=== PATIENT | female | born 1945 | race Caucasian/White ===

== ENCOUNTER 2017-12-27 09:39 | Inpatient (IN) | payer MEDICARE, OTHER ==
[~2017-12-27] VITALS: Ht 160 cm; Wt 106.7 kg
[~2017-12-27 09:39] MED LIST: ASPI81CH43 PO; CALC500C3 PO; DOCU-94 PO; ERGO2000 PO; HYDR5TAB60 PO; LEV50T PO; NITR-48 PO
[2017-12-27] MEDS ORDERED: KETOROLAC TROMETH 30 MG/ML 1ML VIAL IV ONE (10:15)
[2017-12-27 10:17] LABS: Hematocrit 36.2 % (36.0-46.0); Hemoglobin 11.7 g/dL (12.2-16.2); Mean Corpuscular Hemoglobin 29.3 pg (28.0-32.0); Mean Corpuscular Hgb Conc. 32.4 g/dL (32.0-36.0); Mean Corpuscular Volume 90.6 fL (80.0-100.0); Platelet Count (auto) 300 10^3/uL (140-450); Red Cell Distribution Width 15.7 % (11.8-14.3); White Blood Cell 15.7 10^3/uL (4.4-10.8)
[2017-12-27 10:24] LABS: Band Neutrophils % (manual) 0; Basophils % (manual) 0 (0.0-2.0); Blast Cells 0; Eosinophils % (manual) 0 (0-7); Metamyelocytes % 0; Myelocytes % 0; Promyelocytes % 0; Reactive Lymphocytes 0
[2017-12-27 10:36] LABS: Anion Gap 11 (5-15); BUN/Creatinine Ratio 30.8; Blood Urea Nitrogen 61 mg/dL (7-18); Carbon Dioxide 22 mmol/L (21-32); Chloride 103 mmol/L (98-107); Glucose 197 mg/dL (74-106); Sodium 136 mmol/L (136-145)
[2017-12-27 10:37] LABS: Alanine Aminotransferase 24 U/L (13-56); Albumin 3.2 g/dL (3.4-5.0); Alkaline Phosphatase 118 U/L (45-117); Aspartate Aminotransferase 16 U/L (15-37); Bilirubin, Total 0.2 mg/dL (0.2-1.0); Calcium 8.9 mg/dL (8.5-10.1); GFR African American 32 mL/min; GFR Non-African American 26 mL/min; Magnesium 2.9 mg/dL (1.6-2.6); Total Protein 7.1 g/dL (6.4-8.2)
[2017-12-27 11:10] LABS: Lymphocytes % (manual) 29 (10.0-50.0); Monocytes % (manual) 5 (0-12)
[2017-12-27] MEDS ORDERED: MORPHINE SULFATE 4 MG/ML SYR/VIAL IV ONE (12:15)
[2017-12-27] MEDS ORDERED: ONDANSETRON HCL 4 MG/2 ML VIAL IV ONE (12:15)
[2017-12-27] MEDS ORDERED: DEXTROSE (50%) 50ML SYRG IV PRN ×2 (13:45→18:00)
[2017-12-27] MEDS ORDERED: ERGOCALCIFEROL 50,000 UNIT(1.25MG) CAP PO SCH (13:45)
[2017-12-27] MEDS ORDERED: cloNIDine HCL 0.1 MG TAB PO PRN (13:45)
[2017-12-27] MEDS ORDERED: DOCUSATE SOD 100 MG CAP PO PRN (14:00)
[2017-12-27] MEDS ORDERED: MORPHINE SULFATE 4 MG/ML SYR/VIAL IV PRN (14:00)
[2017-12-27] MEDS ORDERED: METOPROLOL SUCCINATE XL 50 MG TAB PO ONE (14:00)
[2017-12-27] MEDS ORDERED: predniSONE 20 MG TAB PO ONE (14:00)
[2017-12-27] MEDS ORDERED: traMADol HCL 50 MG TAB PO PRN (14:00)
[2017-12-27] MEDS ORDERED: TEMAZEPAM 15 MG CAP PO PRN (14:00)
[2017-12-27] MEDS ORDERED: NITROGLYCERIN 0.4 MG SL TAB SL PRN (14:00)
[2017-12-27] MEDS ORDERED: HYDROCORTISONE 10 MG TAB PO ONE (14:00)
[2017-12-27] MEDS ORDERED: ONDANSETRON HCL 4 MG/2 ML VIAL IV PRN (14:00)
[2017-12-27] MEDS ORDERED: LEVOTHYROXINE SODIUM 25 MCG TAB PO ONE (14:00)
[2017-12-27] MEDS: FAMOTIDINE 20 MG TAB PO SCH (14:05)
[2017-12-27] MEDS: SODIUM CHLOR 0.9% PF (SALINE LOCK) 10ML VIAL IV SCH ×2 (14:21→22:21)
[2017-12-27 16:27] LABS: Cholesterol 169 mg/dL (< 200); HDL Cholesterol 47 mg/dL (40-59); LDL Cholesterol 101 mg/dL (< 100); Triglycerides 191 mg/dL (< 150)
[2017-12-27 16:33] VITALS: BP 165/119
[2017-12-27] MEDS: MORPHINE SULFATE 4 MG/ML SYR/VIAL IV PRN (16:44)
[2017-12-27] MEDS ORDERED: ACCU-CHEK COMFORT CURVE STRIP VI SCH (17:00)
[2017-12-27] MEDS ORDERED: InsuLIN REG 1unit/0.01ml Soln (100units/ml) SC SCH ×2 (17:00→22:00)
[2017-12-27 17:02] LABS: Urine Bacteria MANY /hpf (None Seen); Urine Blood Negative /uL (Negative); Urine Hyaline Cast FEW /lpf (0 - 2); Urine Mucus FEW (None Seen); Urine Specific Gravity 1.014 (1.001-1.035); Urine WBC 38 /hpf (0 - 5)
[2017-12-27] MEDS ORDERED: PRAV20TA3 PO (17:02)
[2017-12-27] MEDS ORDERED: PRE5T PO (17:02)
[2017-12-27] MEDS ORDERED: METO25TA62 PO (17:02)
[2017-12-27] MEDS ORDERED: LEV50T PO (17:02)
[2017-12-27] MEDS ORDERED: InsuLIN REG 1unit/0.01ml Soln (100units/ml) SC ONE ×2 (18:00→19:15)
[2017-12-27] MEDS: Boost Glucose Control 8 Ounces PO SCH (18:10)
[2017-12-27 20:00] VITALS: BP 95/44
[2017-12-27] MEDS: ACCU-CHEK COMFORT CURVE STRIP VI SCH (20:15)
[2017-12-27 22:00] VITALS: BP 95/44
[2017-12-27] MEDS ORDERED: HYDROCORTISONE 10 MG TAB PO SCH (22:00)
[2017-12-27] MEDS ORDERED: FAMOTIDINE 20 MG TAB PO SCH (22:00)
[2017-12-27] MEDS: PRAVASTATIN SODIUM 20 MG TAB PO SCH (22:20)
[2017-12-27] MEDS: ASCORBIC ACID 500 MG TAB PO SCH (22:21)
[2017-12-27] MEDS ORDERED: InsuLIN REG 1unit/0.01ml Soln (100units/ml) IV ONE (23:30)
[2017-12-28] VITALS (61 sets, daily range): BP systolic 26–142; BP diastolic 17–81
[2017-12-28] MEDS ORDERED: DEXTROSE (50%) 50ML SYRG IV ONE (05:45)
[2017-12-28] MEDS ORDERED: SODIUM CHLORIDE 0.9% 1,000 ML IV ONE ×2 (05:45→14:30)
[2017-12-28] MEDS: SODIUM CHLOR 0.9% PF (SALINE LOCK) 10ML VIAL IV SCH ×3 (06:19→22:00)
[2017-12-28] MEDS: LEVOTHYROXINE SODIUM 25 MCG TAB PO SCH (06:45)
[2017-12-28] MEDS: InsuLIN REG 1unit/0.01ml Soln (100units/ml) SC SCH ×3 (06:54→17:00)
[2017-12-28] MEDS ORDERED: SODIUM CHLORIDE 0.9% 500 ML IV ONE (07:00)
[2017-12-28 07:18] LABS: Basophils # (auto) 0 uL; Basophils % (auto) 0.2 % (0.0-2.0); Eosinophils # (auto) 0.1 uL; Eosinophils % (auto) 0.5 % (0.0-7.0); Hematocrit 37.9 % (36.0-46.0); Hemoglobin 11.8 g/dL (12.2-16.2); Lymphocytes # (auto) 0.9 uL; Lymphocytes % (auto) 5.5 % (10.0-50.0); Mean Corpuscular Hemoglobin 29.7 pg (28.0-32.0); Mean Corpuscular Hgb Conc. 31.3 g/dL (32.0-36.0); Mean Corpuscular Volume 95.1 fL (80.0-100.0); Monocytes # (auto) 0.3 uL; Monocytes % (auto) 2.1 % (0.0-12.0); Neutrophils # (auto) 14.4 uL; Neutrophils % (auto) 91.7 % (37.0-80.0); Nucleated Red Blood Cells % 0.1 %; Platelet Count (auto) 240 10^3/uL (140-450); Red Blood Cells 3.98 10^6/uL (4.0-5.20); Red Cell Distribution Width 16.7 % (11.8-14.3); White Blood Cell 15.7 10^3/uL (4.4-10.8)
[2017-12-28] MEDS ORDERED: NOREPINEPHRINE 8 MG/250ML KIT 250 ML IV ONE (07:18)
[2017-12-28] MEDS: ACCU-CHEK COMFORT CURVE STRIP VI SCH ×7 (07:23→23:58)
[2017-12-28 07:37] LABS: Albumin 3.3 g/dL (3.4-5.0); BUN/Creatinine Ratio 25.8; Calcium 8.1 mg/dL (8.5-10.1)
[2017-12-28 07:39] LABS: Bilirubin, Total 0.7 mg/dL (0.2-1.0); Total Protein 7.2 g/dL (6.4-8.2)
[2017-12-28] MEDS: Boost Glucose Control 8 Ounces PO SCH ×3 (08:00→18:00)
[2017-12-28] MEDS: NOREPINEPHRINE 8 MG/250ML KIT 250 ML IV SCH (08:52)
[2017-12-28] MEDS ORDERED: cefTRIAXone 1GM/10ml IVPUSH 10 ML IV SCH (09:00)
[2017-12-28] MEDS: METOPROLOL SUCCINATE XL 50 MG TAB PO SCH (10:00)
[2017-12-28] MEDS: MULTIPLE VITAMIN TAB PO SCH (10:00)
[2017-12-28] MEDS: ASCORBIC ACID 500 MG TAB PO SCH ×2 (10:00→22:00)
[2017-12-28] MEDS ORDERED: predniSONE 20 MG TAB PO SCH (10:00)
[2017-12-28] MEDS: FAMOTIDINE 20 MG TAB PO SCH (10:00)
[2017-12-28] MEDS: ZINC SULFATE 220 MG CAP PO SCH (10:00)
[2017-12-28] MEDS ORDERED: HYDROCORTISONE 10 MG TAB PO SCH (10:00)
[2017-12-28 10:14] LABS: INR 0.97 (0.9-1.15); Prothrombin Time 10.6 sec (9.37-12.3)
[2017-12-28] MEDS ORDERED: ENOXAPARIN SOD 100 MG/1 ML SYRINGE SC ONE (10:30)
[2017-12-28] MEDS ORDERED: PHENYLEPHRINE IV 250 ML IV ONE ×2 (10:35→13:54)
[2017-12-28] MEDS ORDERED: ACETYLCYSTEINE ORAL for CIN 20%(200MG/ML) 4ML PO ONE (11:30)
[2017-12-28] MEDS ORDERED: AMIODARONE HCL 150 MG in D5W 5% 100 ML IV ONE (11:30)
[2017-12-28] MEDS ORDERED: AMIODARONE HCL 900 MG in DEXTROSE 500 ML IV SCH (11:31)
[2017-12-28] MEDS ORDERED: ETOMIDATE (2MG/ML) 20ML VIAL IV ONE (11:49)
[2017-12-28] MEDS ORDERED: ROCURONIUM 10MG/ML 10ML VIAL IV ONE (11:49)
[2017-12-28] MEDS ORDERED: VASOPRESSIN 20 UNIT/ML ONE (12:33)
[2017-12-28] MEDS ORDERED: methylPREDNISolone SOD SUCC 40 MG/ML VL ONE (12:42)
[2017-12-28] MEDS ORDERED: PHENYLEPHRINE INJ 20 MG in D5W 5% 250 ML IV SCH (13:30)
[2017-12-28] MEDS ORDERED: methylPREDNISolone SOD SUCC 40 MG/ML VL IV ONE (13:30)
[2017-12-28] MEDS: EPINEPHrine HCL INJECTION 4 MG in SODIUM CHL 0.9% 250 ML IV SCH (13:30)
[2017-12-28] MEDS: VASOPRESSIN 50 UNITS in D5W 5% 247.5 ML IV SCH (13:39)
[2017-12-28] MEDS ORDERED: SODIUM BICARBONATE 8.4 % INJ 50ML VIAL IV ONE ×2 (13:45→23:00)
[2017-12-28 13:48] LABS: Basophils # (auto) 0 uL; Basophils % (auto) 0.1 % (0.0-2.0); Eosinophils # (auto) 0.1 uL; Hemoglobin 11.8 g/dL (12.2-16.2); Monocytes # (auto) 1.7 uL; Monocytes % (auto) 8.9 % (0.0-12.0); Neutrophils # (auto) 16.3 uL; Nucleated Red Blood Cells % 0.1 %
[2017-12-28 13:50] LABS: Eosinophils % (auto) 0.5 % (0.0-7.0); Lymphocytes # (auto) 1.6 uL; Lymphocytes % (auto) 7.9 % (10.0-50.0); Mean Corpuscular Hemoglobin 29.1 pg (28.0-32.0); Mean Corpuscular Hgb Conc. 31.1 g/dL (32.0-36.0); Mean Corpuscular Volume 93.8 fL (80.0-100.0); Neutrophils % (auto) 82.6 % (37.0-80.0); Platelet Count (auto) 250 10^3/uL (140-450); Red Blood Cells 4.05 10^6/uL (4.0-5.20); Red Cell Distribution Width 16.2 % (11.8-14.3); White Blood Cell 19.7 10^3/uL (4.4-10.8)
[2017-12-28 14:04] LABS: Albumin 2.7 g/dL (3.4-5.0); Bilirubin, Total 0.6 mg/dL (0.2-1.0); Calcium 7.1 mg/dL (8.5-10.1); Potassium 5.3 mmol/L (3.5-5.1); Total Protein 6.2 g/dL (6.4-8.2)
[2017-12-28 14:52] LABS: Phosphorus 6.8 mg/dL (2.5-4.90)
[2017-12-28] MEDS: SODIUM BICARB 50ML SYR 150 ML in D5W 5% 1,000 ML IV SCH ×2 (14:55→23:27)
[2017-12-28] MEDS ORDERED: IOHEXOL 350 MG/ML 100ML IJ ONE (15:05)
[2017-12-28] MEDS ORDERED: LIDOCAINE 2%HCL (LOCAL ANESTH.) INJ 20ML MDV ONE (15:05)
[2017-12-28] MEDS ORDERED: LORazepam 2MG/ML-1ML VIAL ONE (15:32)
[2017-12-28] MEDS ORDERED: PHENYLEPHRINE INJ 40 MG in SODIUM CHL 0.9% 250 ML IV SCH (15:45)
[2017-12-28] MEDS: MIDAZOLAM DRIP 50 mg/50mL 50 ML IV SCH (15:49)
[2017-12-28] MEDS ORDERED: PIPERACILLIN-TAZOB 2.25GM 50 ML IV SCH (16:11)
[2017-12-28] MEDS: ACETYLCYSTEINE 20%(200MG/ML) SOLN 30ML PO SCH ×2 (16:15→22:00)
[2017-12-28] MEDS ORDERED: LORazepam 2MG/ML-1ML VIAL IV PRN (16:15)
[2017-12-28] MEDS: LINEZOLID 600MG/300ML 300 ML IV SCH ×2 (17:12→22:00)
[2017-12-28] MEDS: PHENYLEPHRINE INJ 40 MG in SODIUM CHL 0.9% 250 ML IV SCH (17:15)
[2017-12-28 17:51] LABS: BUN/Creatinine Ratio 23.5; Potassium 5.4 mmol/L (3.5-5.1)
[2017-12-28 17:54] LABS: Lactic Acid w/Reflex 6.5 mmol/L (0.4-2.0)
[2017-12-28] MEDS ORDERED: InsuLIN R (HUMAN) 100 UNITS in SODIUM CHL 0.9% 99 ML IV SCH ×3 (19:29→23:59)
[2017-12-28] MEDS ORDERED: DEXTROSE (50%) 50ML SYRG IV PRN (19:30)
[2017-12-28] MEDS ORDERED: methylPREDNISolone SOD SUCC 40 MG/ML VL IV SCH (22:00)
[2017-12-28] MEDS: HYDROCORTISONE SOD SUCC 100 MG/2ML INJ VIAL IV SCH (22:00)
[2017-12-28] MEDS: PRAVASTATIN SODIUM 20 MG TAB PO SCH (22:00)
[2017-12-28] MEDS: PIPERACILLIN-TAZOB 2.25GM 50 ML IV SCH (22:00)
[2017-12-29] VITALS (107 sets, daily range): BP systolic 0–180; BP diastolic 0–100
[2017-12-29] MEDS: InsuLIN R (HUMAN) 100 UNITS in SODIUM CHL 0.9% 99 ML IV SCH ×3 (01:27→16:07)
[2017-12-29] MEDS: ACCU-CHEK COMFORT CURVE STRIP VI SCH ×15 (01:34→22:30)
[2017-12-29] MEDS: SODIUM BICARB 50ML SYR 150 ML in D5W 5% 1,000 ML IV SCH ×2 (02:00→12:10)
[2017-12-29 02:14] LABS: Hematocrit 31.7 % (36.0-46.0); Mean Corpuscular Hemoglobin 29.2 pg (28.0-32.0); Mean Corpuscular Hgb Conc. 31.7 g/dL (32.0-36.0); Mean Corpuscular Volume 92.1 fL (80.0-100.0); Platelet Count (auto) 169 10^3/uL (140-450); Red Blood Cells 3.44 10^6/uL (4.0-5.20); Red Cell Distribution Width 15.7 % (11.8-14.3); White Blood Cell 16.4 10^3/uL (4.4-10.8)
[2017-12-29] MEDS: MIDAZOLAM DRIP 50 mg/50mL 50 ML IV SCH (02:15)
[2017-12-29 02:22] LABS: Basophils % (manual) 0 (0.0-2.0); Blast Cells 0; Eosinophils % (manual) 0 (0-7); Myelocytes % 0; Promyelocytes % 0; Reactive Lymphocytes 0
[2017-12-29 02:31] LABS: Albumin 1.6 g/dL (3.4-5.0); Potassium 3.7 mmol/L (3.5-5.1)
[2017-12-29 02:33] LABS: BUN/Creatinine Ratio 21.9; Lactic Acid w/Reflex 11.5 mmol/L (0.4-2.0); Total Protein 4.4 g/dL (6.4-8.2)
[2017-12-29 02:34] LABS: Magnesium 1.8 mg/dL (1.6-2.6); Phosphorus 4.9 mg/dL (2.5-4.90)
[2017-12-29 02:44] LABS: Band Neutrophils % (manual) 34; Lymphocytes % (manual) 1 (10.0-50.0); Metamyelocytes % 22; Monocytes % (manual) 5 (0-12)
[2017-12-29] MEDS ORDERED: VASOPRESSIN 20 UNIT/ML ONE (02:44)
[2017-12-29 02:50] LABS: Calcium 5.3 mg/dL (8.5-10.1)
[2017-12-29] MEDS: VASOPRESSIN 50 UNITS in D5W 5% 247.5 ML IV SCH (02:54)
[2017-12-29] MEDS: NOREPINEPHRINE 8 MG/250ML KIT 250 ML IV SCH ×3 (02:57→22:11)
[2017-12-29 03:00] LABS: Bilirubin, Total 0.4 mg/dL (0.2-1.0)
[2017-12-29] MEDS ORDERED: InsuLIN REG 1unit/0.01ml Soln (100units/ml) SC ONE ×2 (03:15→04:45)
[2017-12-29] MEDS: PIPERACILLIN-TAZOB 2.25GM 50 ML IV SCH ×3 (05:31→22:10)
[2017-12-29] MEDS: SODIUM CHLOR 0.9% PF (SALINE LOCK) 10ML VIAL IV SCH ×3 (05:31→22:10)
[2017-12-29 05:51] LABS: Urine Amorphous Crystal FEW /hpf (None Seen); Urine Bacteria FEW /hpf (None Seen); Urine Blood 1+ /uL (Negative); Urine Mucus FEW (None Seen); Urine Specific Gravity 1.021 (1.001-1.035); Urine WBC 16 /hpf (0 - 5)
[2017-12-29] MEDS: LEVOTHYROXINE SODIUM 25 MCG TAB PO SCH (06:03)
[2017-12-29 06:56] LABS: BUN/Creatinine Ratio 23.3; Potassium 3.5 mmol/L (3.5-5.1)
[2017-12-29 06:57] LABS: Albumin 1.7 g/dL (3.4-5.0); Bilirubin, Total 0.3 mg/dL (0.2-1.0); Lactic Acid w/Reflex 8.4 mmol/L (0.4-2.0); Total Protein 4.5 g/dL (6.4-8.2)
[2017-12-29 07:02] LABS: Calcium 5.6 mg/dL (8.5-10.1)
[2017-12-29] MEDS: Boost Glucose Control 8 Ounces PO SCH (08:00)
[2017-12-29] MEDS: LINEZOLID 600MG/300ML 300 ML IV SCH ×2 (09:37→22:00)
[2017-12-29] MEDS: ZINC SULFATE 220 MG CAP PO SCH (09:37)
[2017-12-29] MEDS: HYDROCORTISONE SOD SUCC 100 MG/2ML INJ VIAL IV SCH ×2 (09:37→22:10)
[2017-12-29] MEDS: METOPROLOL SUCCINATE XL 50 MG TAB PO SCH (09:38)
[2017-12-29] MEDS: MULTIPLE VITAMIN TAB PO SCH (09:38)
[2017-12-29] MEDS: FAMOTIDINE 20 MG TAB PO SCH (09:38)
[2017-12-29] MEDS: ASCORBIC ACID 500 MG TAB PO SCH (09:38)
[2017-12-29] MEDS: PHENYLEPHRINE INJ 40 MG in SODIUM CHL 0.9% 250 ML IV SCH (09:39)
[2017-12-29] MEDS ORDERED: ENOXAPARIN SOD 100 MG/1 ML SYRINGE SC SCH (10:00)
[2017-12-29] MEDS: ACETYLCYSTEINE 20%(200MG/ML) SOLN 30ML PO SCH (10:02)
[2017-12-29] MEDS ORDERED: CALCIUM GLUC 4.65meq/50ml D5AE 50 ML IV ONE (11:45)
[2017-12-29] MEDS ORDERED: Diabetisource AC 1 Liter GT SCH (11:45)
[2017-12-29] MEDS: EPINEPHrine HCL INJECTION 4 MG in SODIUM CHL 0.9% 250 ML IV SCH (13:12)
[2017-12-29] MEDS ORDERED: ALBUMIN 25% 100 ML IV ONE (13:30)
[2017-12-29] MEDS ORDERED: DEXTROSE (50%) 50ML SYRG IV PRN (16:15)
[2017-12-29 18:58] LABS: White Blood Cell 10.9 10^3/uL (4.4-10.8)
[2017-12-29 19:00] LABS: Hematocrit 29.3 % (36.0-46.0); Mean Corpuscular Hemoglobin 30.1 pg (28.0-32.0); Mean Corpuscular Hgb Conc. 34.1 g/dL (32.0-36.0); Mean Corpuscular Volume 88.4 fL (80.0-100.0); Platelet Count (auto) 108 10^3/uL (140-450); Red Blood Cells 3.32 10^6/uL (4.0-5.20); Red Cell Distribution Width 15.6 % (11.8-14.3)
[2017-12-29 19:03] LABS: Eosinophils % (manual) 0 (0-7)
[2017-12-29 19:04] LABS: Basophils % (manual) 0 (0.0-2.0); Blast Cells 0; Metamyelocytes % 0; Myelocytes % 0; Promyelocytes % 0; Reactive Lymphocytes 0
[2017-12-29 19:38] LABS: Band Neutrophils % (manual) 20; Lymphocytes % (manual) 3 (10.0-50.0); Monocytes % (manual) 2 (0-12)
[2017-12-29] MEDS: PANTOPRAZOLE 40 MG/10 ML VIAL IV SCH (22:09)
[2017-12-30] VITALS (103 sets, daily range): BP systolic 67–190; BP diastolic 33–80
[2017-12-30] MEDS: MIDAZOLAM DRIP 50 mg/50mL 50 ML IV SCH ×3 (00:57→21:10)
[2017-12-30] MEDS: ACCU-CHEK COMFORT CURVE STRIP VI SCH ×16 (01:30→22:30)
[2017-12-30] MEDS: SODIUM BICARB 50ML SYR 150 ML in D5W 5% 1,000 ML IV SCH ×2 (03:05→16:30)
[2017-12-30 03:49] LABS: Hematocrit 27.5 % (36.0-46.0); Hemoglobin 9.1 g/dL (12.2-16.2); Mean Corpuscular Hemoglobin 29.2 pg (28.0-32.0); Mean Corpuscular Volume 88.6 fL (80.0-100.0); Platelet Count (auto) 86 10^3/uL (140-450); Red Cell Distribution Width 15.8 % (11.8-14.3); White Blood Cell 13.9 10^3/uL (4.4-10.8)
[2017-12-30 03:59] LABS: Albumin 1.9 g/dL (3.4-5.0); Potassium 3.7 mmol/L (3.5-5.1)
[2017-12-30 04:03] LABS: Total Protein 4.5 g/dL (6.4-8.2)
[2017-12-30 04:13] LABS: Bilirubin, Total 0.6 mg/dL (0.2-1.0)
[2017-12-30 04:15] LABS: Basophils % (manual) 0 (0.0-2.0); Blast Cells 0; Eosinophils % (manual) 0 (0-7); Myelocytes % 0; Promyelocytes % 0; Reactive Lymphocytes 0
[2017-12-30 04:20] LABS: BUN/Creatinine Ratio 21.7
[2017-12-30 04:21] LABS: Calcium 5.2 mg/dL (8.5-10.1)
[2017-12-30 04:35] LABS: Band Neutrophils % (manual) 27; Lymphocytes % (manual) 1 (10.0-50.0); Metamyelocytes % 4; Monocytes % (manual) 7 (0-12)
[2017-12-30] MEDS: PIPERACILLIN-TAZOB 2.25GM 50 ML IV SCH (05:54)
[2017-12-30] MEDS: SODIUM CHLOR 0.9% PF (SALINE LOCK) 10ML VIAL IV SCH ×3 (05:54→21:24)
[2017-12-30] MEDS: LEVOTHYROXINE SODIUM 25 MCG TAB PO SCH (05:55)
[2017-12-30] MEDS: MULTIPLE VITAMIN TAB PO SCH (11:31)
[2017-12-30] MEDS: HYDROCORTISONE SOD SUCC 100 MG/2ML INJ VIAL IV SCH ×2 (11:31→21:24)
[2017-12-30] MEDS: PANTOPRAZOLE 40 MG/10 ML VIAL IV SCH ×2 (11:31→21:24)
[2017-12-30] MEDS: MEROPENEM 500mg/10ml IVPUSH 10 ML IV SCH ×2 (11:53→22:00)
[2017-12-30] MEDS: VASOPRESSIN 50 UNITS in D5W 5% 247.5 ML IV SCH (12:30)
[2017-12-30] MEDS: EPINEPHrine HCL INJECTION 4 MG in SODIUM CHL 0.9% 250 ML IV SCH (13:30)
[2017-12-30] MEDS ORDERED: CALCIUM GLUC 4.65meq/50ml D5AE 50 ML IV ONE (15:00)
[2017-12-30] MEDS ORDERED: AMIODARONE HCL 150 MG in D5W 5% 100 ML IV ONE (15:15)
[2017-12-30] MEDS ORDERED: AMIODARONE HCL 900 MG in DEXTROSE 500 ML IV SCH ×2 (15:47→21:47)
[2017-12-30] MEDS: InsuLIN R (HUMAN) 100 UNITS in SODIUM CHL 0.9% 99 ML IV SCH (16:30)
[2017-12-30] MEDS: PHENYLEPHRINE INJ 20 MG in SODIUM CHL 0.9% 250 ML IV SCH ×2 (17:50→21:24)
[2017-12-31] VITALS (103 sets, daily range): BP systolic 77–157; BP diastolic 42–70
[2017-12-31] MEDS: ACCU-CHEK COMFORT CURVE STRIP VI SCH ×16 (01:30→22:35)
[2017-12-31 04:05] LABS: Hemoglobin 9.2 g/dL (12.2-16.2)
[2017-12-31 04:08] LABS: Hematocrit 27.3 % (36.0-46.0); Mean Corpuscular Hemoglobin 29.7 pg (28.0-32.0); Mean Corpuscular Hgb Conc. 33.9 g/dL (32.0-36.0); Mean Corpuscular Volume 87.8 fL (80.0-100.0); Platelet Count (auto) 60 10^3/uL (140-450); Red Cell Distribution Width 15.9 % (11.8-14.3); White Blood Cell 8.2 10^3/uL (4.4-10.8)
[2017-12-31 04:21] LABS: Albumin 1.5 g/dL (3.4-5.0); BUN/Creatinine Ratio 22.3; Bilirubin, Total 0.6 mg/dL (0.2-1.0); Potassium 3.1 mmol/L (3.5-5.1); Total Protein 4.7 g/dL (6.4-8.2)
[2017-12-31 04:30] LABS: Calcium 5.3 mg/dL (8.5-10.1)
[2017-12-31 05:15] LABS: Basophils % (manual) 0 (0.0-2.0); Blast Cells 0; Eosinophils % (manual) 0 (0-7); Metamyelocytes % 0; Myelocytes % 0; Promyelocytes % 0; Reactive Lymphocytes 0
[2017-12-31 05:30] LABS: Band Neutrophils % (manual) 29; Lymphocytes % (manual) 9 (10.0-50.0); Monocytes % (manual) 4 (0-12)
[2017-12-31] MEDS: SODIUM CHLOR 0.9% PF (SALINE LOCK) 10ML VIAL IV SCH ×3 (06:11→21:40)
[2017-12-31] MEDS: LEVOTHYROXINE SODIUM 25 MCG TAB PO SCH (06:56)
[2017-12-31] MEDS: NOREPINEPHRINE 8 MG/250ML KIT 250 ML IV SCH (07:27)
[2017-12-31] MEDS ORDERED: CALCIUM GLUC 4.65meq/50ml D5AE 50 ML IV ONE (09:30)
[2017-12-31] MEDS: PHENYLEPHRINE INJ 20 MG in SODIUM CHL 0.9% 250 ML IV SCH ×2 (10:00→22:30)
[2017-12-31] MEDS: MULTIPLE VITAMIN TAB PO SCH (10:00)
[2017-12-31] MEDS: MIDAZOLAM DRIP 50 mg/50mL 50 ML IV SCH (10:15)
[2017-12-31] MEDS: POTASSIUM CHL 20MEQ/100ML 100 ML IV SCH ×2 (11:00→14:15)
[2017-12-31] MEDS: HYDROCORTISONE SOD SUCC 100 MG/2ML INJ VIAL IV SCH ×2 (11:34→21:40)
[2017-12-31] MEDS: PANTOPRAZOLE 40 MG/10 ML VIAL IV SCH ×2 (11:35→21:40)
[2017-12-31] MEDS: MEROPENEM 500mg/10ml IVPUSH 10 ML IV SCH ×2 (11:39→21:40)
[2017-12-31] MEDS: VASOPRESSIN 50 UNITS in D5W 5% 247.5 ML IV SCH (12:30)
[2017-12-31] MEDS: AMIODARONE HCL 900 MG in DEXTROSE 500 ML IV SCH (13:30)
[2017-12-31] MEDS: InsuLIN R (HUMAN) 100 UNITS in SODIUM CHL 0.9% 99 ML IV SCH (21:15)
[2017-12-31] MEDS ORDERED: PHENYLEPHRINE IV 250 ML IV ONE (22:13)
[2017-12-31] MEDS: SODIUM BICARB 50ML SYR 150 ML in D5W 5% 1,000 ML IV SCH (22:30)
[2018-01-01] VITALS (108 sets, daily range): BP systolic 78–135; BP diastolic 35–67
[2018-01-01] MEDS: SODIUM BICARB 50ML SYR 150 ML in D5W 5% 1,000 ML IV SCH (01:05)
[2018-01-01] MEDS: PHENYLEPHRINE INJ 20 MG in SODIUM CHL 0.9% 250 ML IV SCH ×3 (01:08→16:58)
[2018-01-01] MEDS: ACCU-CHEK COMFORT CURVE STRIP VI SCH ×16 (01:30→22:30)
[2018-01-01 05:05] LABS: Hemoglobin 8.1 g/dL (12.2-16.2); Mean Corpuscular Hemoglobin 29.9 pg (28.0-32.0); White Blood Cell 4.7 10^3/uL (4.4-10.8)
[2018-01-01 05:07] LABS: Hematocrit 23.6 % (36.0-46.0); Mean Corpuscular Hgb Conc. 34.2 g/dL (32.0-36.0); Mean Corpuscular Volume 87.5 fL (80.0-100.0); Platelet Count (auto) 48 10^3/uL (140-450); Red Cell Distribution Width 15.9 % (11.8-14.3)
[2018-01-01 05:18] LABS: Basophils % (manual) 0 (0.0-2.0); Blast Cells 0; Metamyelocytes % 0; Myelocytes % 0; Promyelocytes % 0; Reactive Lymphocytes 0
[2018-01-01 05:22] LABS: Albumin 1.3 g/dL (3.4-5.0); BUN/Creatinine Ratio 20.7; Bilirubin, Total 0.8 mg/dL (0.2-1.0); Total Protein 4.6 g/dL (6.4-8.2)
[2018-01-01 05:25] LABS: Calcium 5.1 mg/dL (8.5-10.1)
[2018-01-01] MEDS: SODIUM CHLOR 0.9% PF (SALINE LOCK) 10ML VIAL IV SCH ×3 (06:00→21:55)
[2018-01-01 06:24] LABS: Band Neutrophils % (manual) 22; Eosinophils % (manual) 0 (0-7); Lymphocytes % (manual) 4 (10.0-50.0); Monocytes % (manual) 3 (0-12)
[2018-01-01] MEDS: LEVOTHYROXINE SODIUM 25 MCG TAB PO SCH (07:04)
[2018-01-01] MEDS: NOREPINEPHRINE 8 MG/250ML KIT 250 ML IV SCH (07:27)
[2018-01-01] MEDS ORDERED: PHENYLEPHRINE IV 0 ML IV ONE (08:08)
[2018-01-01] MEDS: MULTIPLE VITAMIN TAB PO SCH (10:00)
[2018-01-01] MEDS ORDERED: POTASSIUM CHL 10% (20 MEQ/15ML) 15ml ORAL SOLN GT ONE (10:15)
[2018-01-01] MEDS ORDERED: hydrALAZINE HCL 20 MG/ML VL IV PRN (10:15)
[2018-01-01] MEDS: HYDROCORTISONE SOD SUCC 100 MG/2ML INJ VIAL IV SCH ×2 (10:42→21:55)
[2018-01-01] MEDS: PANTOPRAZOLE 40 MG/10 ML VIAL IV SCH ×2 (10:42→21:55)
[2018-01-01] MEDS: MEROPENEM 500mg/10ml IVPUSH 10 ML IV SCH ×2 (10:43→21:56)
[2018-01-01] MEDS ORDERED: CALCIUM GLUC 4.65meq/50ml D5AE 50 ML IV ONE (11:30)
[2018-01-01] MEDS: VASOPRESSIN 50 UNITS in D5W 5% 247.5 ML IV SCH (12:30)
[2018-01-01] MEDS ORDERED: SODIUM CHLORIDE 0.9% 1,000 ML IV ONE (13:00)
[2018-01-01] MEDS: SODIUM CHLORIDE 0.9% 1,000 ML IV SCH (14:00)
[2018-01-01] MEDS: POTASSIUM CHL 20MEQ/100ML 100 ML IV SCH ×2 (14:51→16:56)
[2018-01-01] MEDS: MIDAZOLAM DRIP 50 mg/50mL 50 ML IV SCH ×2 (15:49→20:03)
[2018-01-01] MEDS: InsuLIN R (HUMAN) 100 UNITS in SODIUM CHL 0.9% 99 ML IV SCH (16:07)
[2018-01-01] MEDS: AMIODARONE HCL 900 MG in DEXTROSE 500 ML IV SCH (18:23)
[2018-01-02] VITALS (102 sets, daily range): BP systolic 73–178; BP diastolic 43–145
[2018-01-02] MEDS: ACCU-CHEK COMFORT CURVE STRIP VI SCH ×9 (01:30→23:56)
[2018-01-02] MEDS: PHENYLEPHRINE INJ 20 MG in SODIUM CHL 0.9% 250 ML IV SCH ×3 (02:08→19:43)
[2018-01-02] MEDS: AMIODARONE HCL 900 MG in DEXTROSE 500 ML IV SCH (02:31)
[2018-01-02 04:36] LABS: Basophils # (auto) 0 uL; Eosinophils # (auto) 0.1 uL; Eosinophils % (auto) 0.6 % (0.0-7.0); Hematocrit 29.5 % (36.0-46.0); Lymphocytes # (auto) 0.3 uL; Lymphocytes % (auto) 2.9 % (10.0-50.0); Mean Corpuscular Hgb Conc. 34.1 g/dL (32.0-36.0); Mean Corpuscular Volume 88.1 fL (80.0-100.0); Monocytes # (auto) 0.2 uL; Monocytes % (auto) 2.4 % (0.0-12.0); Neutrophils # (auto) 9.1 uL; Neutrophils % (auto) 94.1 % (37.0-80.0); Nucleated Red Blood Cells % 0.2 %; Platelet Count (auto) 122 10^3/uL (140-450); Red Blood Cells 3.35 10^6/uL (4.0-5.20); Red Cell Distribution Width 15.6 % (11.8-14.3); White Blood Cell 9.7 10^3/uL (4.4-10.8)
[2018-01-02 05:08] LABS: Albumin 1.4 g/dL (3.4-5.0); BUN/Creatinine Ratio 22.9; Bilirubin, Total 0.6 mg/dL (0.2-1.0); Potassium 3.1 mmol/L (3.5-5.1); Total Protein 4.8 g/dL (6.4-8.2)
[2018-01-02 05:17] LABS: Calcium 5.1 mg/dL (8.5-10.1)
[2018-01-02] MEDS: SODIUM CHLORIDE 0.9% 1,000 ML IV SCH ×2 (05:20→16:40)
[2018-01-02] MEDS: LEVOTHYROXINE SODIUM 25 MCG TAB PO SCH (05:45)
[2018-01-02] MEDS: SODIUM CHLOR 0.9% PF (SALINE LOCK) 10ML VIAL IV SCH ×3 (05:45→21:49)
[2018-01-02] MEDS ORDERED: CALCIUM GLUC 4.65meq/50ml D5AE 50 ML IV ONE ×2 (06:30→07:30)
[2018-01-02] MEDS: NOREPINEPHRINE 8 MG/250ML KIT 250 ML IV SCH (07:27)
[2018-01-02] MEDS: POTASSIUM CHL 20MEQ/100ML 100 ML IV SCH ×4 (09:00→17:10)
[2018-01-02] MEDS: MULTIPLE VITAMIN TAB PO SCH (10:00)
[2018-01-02] MEDS ORDERED: GOLYTELY 4L KIT PO ONE (11:30)
[2018-01-02] MEDS ORDERED: TPN PER PHARMACY 0 ML IV SCH (13:00)
[2018-01-02] MEDS ORDERED: DEXTROSE (50%) 50ML SYRG IV PRN (13:00)
[2018-01-02] MEDS ORDERED: POTASSIUM CHL 20MEQ/100ML 200 ML IV ONE (13:25)
[2018-01-02 13:57] LABS: Magnesium 2.1 mg/dL (1.6-2.6); Pre Albumin 5.4 mg/dL (20.0-40.0)
[2018-01-02] MEDS: MEROPENEM 500mg/10ml IVPUSH 10 ML IV SCH ×2 (14:03→21:49)
[2018-01-02] MEDS: HYDROCORTISONE SOD SUCC 100 MG/2ML INJ VIAL IV SCH ×2 (14:03→21:49)
[2018-01-02] MEDS: VASOPRESSIN 50 UNITS in D5W 5% 247.5 ML IV SCH (14:06)
[2018-01-02] MEDS: PANTOPRAZOLE 40 MG/10 ML VIAL IV SCH ×2 (14:06→21:49)
[2018-01-02] MEDS ORDERED: InsuLIN REG 1unit/0.01ml Soln (100units/ml) SC SCH (18:00)
[2018-01-02] MEDS ORDERED: ACCU-CHEK COMFORT CURVE STRIP VI SCH (18:00)
[2018-01-02] MEDS ORDERED: TPN PER PHARMACY IV NR ×9 (20:00)
[2018-01-02] MEDS ORDERED: SODIUM CHLORIDE 0.9% 1,000 ML IV SCH (20:00)
[2018-01-02] MEDS ORDERED: DEXTROSE (50%) 50ML SYRG IV SCH (20:00)
[2018-01-02 21:18] LABS: Phosphorus 4.2 mg/dL (2.5-4.90)
[2018-01-02] MEDS: InsuLIN REG 1unit/0.01ml Soln (100units/ml) SC SCH (23:56)
[2018-01-03] VITALS (104 sets, daily range): BP systolic 61–163; BP diastolic 32–152
[2018-01-03] MEDS: PHENYLEPHRINE INJ 20 MG in SODIUM CHL 0.9% 250 ML IV SCH ×3 (03:08→19:48)
[2018-01-03 04:06] LABS: Hematocrit 28.1 % (36.0-46.0); Hemoglobin 9.3 g/dL (12.2-16.2); Mean Corpuscular Hemoglobin 29.5 pg (28.0-32.0); Mean Corpuscular Hgb Conc. 33.2 g/dL (32.0-36.0); Mean Corpuscular Volume 88.9 fL (80.0-100.0); Platelet Count (auto) 105 10^3/uL (140-450); Red Blood Cells 3.16 10^6/uL (4.0-5.20); Red Cell Distribution Width 15.8 % (11.8-14.3); White Blood Cell 15.5 10^3/uL (4.4-10.8)
[2018-01-03 04:17] LABS: Albumin 1.2 g/dL (3.4-5.0); BUN/Creatinine Ratio 26.2; Bilirubin, Total 0.6 mg/dL (0.2-1.0); Phosphorus 4.1 mg/dL (2.5-4.90); Potassium 3.5 mmol/L (3.5-5.1); Total Protein 4.3 g/dL (6.4-8.2)
[2018-01-03 04:18] LABS: Basophils % (manual) 0 (0.0-2.0); Blast Cells 0; Eosinophils % (manual) 0 (0-7); Metamyelocytes % 0; Myelocytes % 0; Promyelocytes % 0
[2018-01-03 04:19] LABS: Calcium 5.9 mg/dL (8.5-10.1)
[2018-01-03 04:44] LABS: Band Neutrophils % (manual) 39; Lymphocytes % (manual) 5 (10.0-50.0); Monocytes % (manual) 2 (0-12); Reactive Lymphocytes 1
[2018-01-03] MEDS: ACCU-CHEK COMFORT CURVE STRIP VI SCH ×3 (05:41→18:34)
[2018-01-03] MEDS: SODIUM CHLOR 0.9% PF (SALINE LOCK) 10ML VIAL IV SCH ×3 (05:41→22:00)
[2018-01-03] MEDS: InsuLIN REG 1unit/0.01ml Soln (100units/ml) SC SCH ×3 (05:41→18:35)
[2018-01-03] MEDS: MORPHINE SULFATE 4 MG/ML SYR/VIAL IV PRN (06:00)
[2018-01-03] MEDS: LEVOTHYROXINE SODIUM 25 MCG TAB PO SCH (06:42)
[2018-01-03] MEDS: NOREPINEPHRINE 8 MG/250ML KIT 250 ML IV SCH (07:27)
[2018-01-03] MEDS: HYDROCORTISONE SOD SUCC 100 MG/2ML INJ VIAL IV SCH ×2 (10:33→21:52)
[2018-01-03] MEDS: MEROPENEM 500mg/10ml IVPUSH 10 ML IV SCH ×2 (10:34→21:52)
[2018-01-03] MEDS: PANTOPRAZOLE 40 MG/10 ML VIAL IV SCH ×2 (10:34→21:52)
[2018-01-03] MEDS ORDERED: FLUCONAZOLE 200MG/100ML 100 ML IV ONE (11:15)
[2018-01-03] MEDS: MIDAZOLAM DRIP 50 mg/50mL 50 ML IV SCH (18:36)
[2018-01-03] MEDS ORDERED: DEXTROSE (50%) 50ML SYRG IV PRN (20:00)
[2018-01-03] MEDS ORDERED: TPN PER PHARMACY IV NR ×10 (20:00)
[2018-01-04] VITALS (103 sets, daily range): BP systolic 85–166; BP diastolic 38–98
[2018-01-04] MEDS: InsuLIN REG 1unit/0.01ml Soln (100units/ml) SC SCH ×4 (00:17→18:27)
[2018-01-04] MEDS ORDERED: PHENYLEPHRINE IV 250 ML IV ONE (00:23)
[2018-01-04 03:47] LABS: Hematocrit 27.1 % (36.0-46.0); Mean Corpuscular Hemoglobin 29.7 pg (28.0-32.0); Mean Corpuscular Hgb Conc. 33.4 g/dL (32.0-36.0); Mean Corpuscular Volume 88.8 fL (80.0-100.0); Platelet Count (auto) 121 10^3/uL (140-450); Red Blood Cells 3.05 10^6/uL (4.0-5.20); Red Cell Distribution Width 15.6 % (11.8-14.3); White Blood Cell 16.6 10^3/uL (4.4-10.8)
[2018-01-04 04:11] LABS: Basophils % (manual) 0 (0.0-2.0); Blast Cells 0; Eosinophils % (manual) 0 (0-7); Myelocytes % 0; Promyelocytes % 0
[2018-01-04 04:19] LABS: Albumin 1.2 g/dL (3.4-5.0); BUN/Creatinine Ratio 32.5; Bilirubin, Total 0.3 mg/dL (0.2-1.0); Calcium 6.1 mg/dL (8.5-10.1); Magnesium 2.3 mg/dL (1.6-2.6); Phosphorus 3.2 mg/dL (2.5-4.90); Potassium 3.3 mmol/L (3.5-5.1); Total Protein 4.2 g/dL (6.4-8.2)
[2018-01-04] MEDS: PHENYLEPHRINE INJ 20 MG in SODIUM CHL 0.9% 250 ML IV SCH ×3 (04:37→20:48)
[2018-01-04 05:02] LABS: Band Neutrophils % (manual) 29; Lymphocytes % (manual) 3 (10.0-50.0); Metamyelocytes % 1; Monocytes % (manual) 6 (0-12); Reactive Lymphocytes 1
[2018-01-04] MEDS: SODIUM CHLOR 0.9% PF (SALINE LOCK) 10ML VIAL IV SCH ×3 (05:50→21:34)
[2018-01-04] MEDS: ACCU-CHEK COMFORT CURVE STRIP VI SCH ×4 (05:50→18:27)
[2018-01-04] MEDS: LEVOTHYROXINE SODIUM 25 MCG TAB PO SCH (06:22)
[2018-01-04] MEDS: NOREPINEPHRINE 8 MG/250ML KIT 250 ML IV SCH (07:27)
[2018-01-04] MEDS ORDERED: CALCIUM GLUC 4.65meq/50ml D5AE 50 ML IV ONE (09:00)
[2018-01-04] MEDS ORDERED: POTASSIUM CHL 20MEQ/100ML 100 ML IV ONE (09:00)
[2018-01-04] MEDS: HYDROCORTISONE SOD SUCC 100 MG/2ML INJ VIAL IV SCH ×2 (09:57→21:52)
[2018-01-04] MEDS: PANTOPRAZOLE 40 MG/10 ML VIAL IV SCH ×2 (09:57→21:51)
[2018-01-04] MEDS: FLUCONAZOLE 200MG/100ML 100 ML IV SCH (09:57)
[2018-01-04] MEDS: MEROPENEM 500mg/10ml IVPUSH 10 ML IV SCH ×2 (09:58→21:34)
[2018-01-04] MEDS ORDERED: FUROSEMIDE 40 MG/4 ML VIAL IV ONE (14:45)
[2018-01-04] MEDS: MIDAZOLAM DRIP 50 mg/50mL 50 ML IV SCH (15:49)
[2018-01-04] MEDS: AMIODARONE HCL 900 MG in DEXTROSE 500 ML IV SCH ×2 (15:50→18:23)
[2018-01-04] MEDS ORDERED: ALBUMIN 25% 50 ML IV ONE (16:00)
[2018-01-04] MEDS ORDERED: TPN PER PHARMACY IV NR ×11 (20:00)
[2018-01-04] MEDS: ALBUMIN 25% 50 ML IV SCH (21:34)
[2018-01-05] VITALS (103 sets, daily range): BP systolic 81–179; BP diastolic 35–118
[2018-01-05] MEDS: InsuLIN REG 1unit/0.01ml Soln (100units/ml) SC SCH ×4 (00:15→18:00)
[2018-01-05] MEDS: ACCU-CHEK COMFORT CURVE STRIP VI SCH ×4 (00:15→18:15)
[2018-01-05 03:57] LABS: Hematocrit 26.3 % (36.0-46.0); Hemoglobin 8.6 g/dL (12.2-16.2); Mean Corpuscular Hemoglobin 29.7 pg (28.0-32.0); Mean Corpuscular Hgb Conc. 32.8 g/dL (32.0-36.0); Mean Corpuscular Volume 90.5 fL (80.0-100.0); Platelet Count (auto) 143 10^3/uL (140-450); Red Blood Cells 2.91 10^6/uL (4.0-5.20); Red Cell Distribution Width 15.6 % (11.8-14.3); White Blood Cell 11.7 10^3/uL (4.4-10.8)
[2018-01-05 04:15] LABS: Basophils % (manual) 0 (0.0-2.0); Blast Cells 0; Eosinophils % (manual) 0 (0-7); Metamyelocytes % 0; Myelocytes % 0; Promyelocytes % 0; Reactive Lymphocytes 0
[2018-01-05 04:32] LABS: Albumin 1.7 g/dL (3.4-5.0); BUN/Creatinine Ratio 37.1; Bilirubin, Total 0.7 mg/dL (0.2-1.0); Calcium 6.9 mg/dL (8.5-10.1); Magnesium 2.2 mg/dL (1.6-2.6); Phosphorus 3.4 mg/dL (2.5-4.90); Potassium 3.4 mmol/L (3.5-5.1); Total Protein 4.5 g/dL (6.4-8.2)
[2018-01-05 04:42] LABS: Band Neutrophils % (manual) 13; Lymphocytes % (manual) 8 (10.0-50.0); Monocytes % (manual) 3 (0-12)
[2018-01-05] MEDS: PHENYLEPHRINE INJ 20 MG in SODIUM CHL 0.9% 250 ML IV SCH ×3 (05:08→21:14)
[2018-01-05] MEDS: ALBUMIN 25% 50 ML IV SCH ×3 (05:50→21:19)
[2018-01-05] MEDS: SODIUM CHLOR 0.9% PF (SALINE LOCK) 10ML VIAL IV SCH ×3 (05:50→21:16)
[2018-01-05] MEDS: LEVOTHYROXINE SODIUM 25 MCG TAB PO SCH (06:38)
[2018-01-05] MEDS ORDERED: POTASSIUM CHL 20MEQ/100ML 100 ML IV ONE (09:00)
[2018-01-05] MEDS: PANTOPRAZOLE 40 MG/10 ML VIAL IV SCH ×2 (10:26→21:16)
[2018-01-05] MEDS: HYDROCORTISONE SOD SUCC 100 MG/2ML INJ VIAL IV SCH ×2 (10:26→21:16)
[2018-01-05] MEDS: FLUCONAZOLE 200MG/100ML 100 ML IV SCH (10:29)
[2018-01-05] MEDS: MEROPENEM 500mg/10ml IVPUSH 10 ML IV SCH ×2 (10:29→21:20)
[2018-01-05] MEDS ORDERED: POTASSIUM CHL 10% (20 MEQ/15ML) 15ml ORAL SOLN GT ONE (11:30)
[2018-01-05] MEDS ORDERED: FUROSEMIDE 40 MG/4 ML VIAL IV ONE (11:30)
[2018-01-05] MEDS: AMIODARONE HCL 900 MG in DEXTROSE 500 ML IV SCH (17:36)
[2018-01-05] MEDS ORDERED: TPN PER PHARMACY IV NR ×11 (20:00)
[2018-01-06] VITALS (60 sets, daily range): BP systolic 95–167; BP diastolic 37–127
[2018-01-06] MEDS: ACCU-CHEK COMFORT CURVE STRIP VI SCH ×4 (00:06→18:15)
[2018-01-06] MEDS: InsuLIN REG 1unit/0.01ml Soln (100units/ml) SC SCH ×4 (00:15→18:00)
[2018-01-06 02:06] LABS: Hemoglobin 7.8 g/dL (12.2-16.2)
[2018-01-06 02:07] LABS: Hematocrit 23.9 % (36.0-46.0); Mean Corpuscular Hemoglobin 29.5 pg (28.0-32.0); Mean Corpuscular Hgb Conc. 32.7 g/dL (32.0-36.0); Mean Corpuscular Volume 90.2 fL (80.0-100.0); Platelet Count (auto) 154 10^3/uL (140-450); Red Blood Cells 2.65 10^6/uL (4.0-5.20); Red Cell Distribution Width 15.8 % (11.8-14.3); White Blood Cell 11.4 10^3/uL (4.4-10.8)
[2018-01-06 02:12] LABS: Basophils % (manual) 0 (0.0-2.0); Blast Cells 0; Eosinophils % (manual) 0 (0-7); Metamyelocytes % 0; Myelocytes % 0; Promyelocytes % 0; Reactive Lymphocytes 0
[2018-01-06] MEDS: SODIUM CHLOR 0.9% PF (SALINE LOCK) 10ML VIAL IV SCH ×3 (02:40→22:24)
[2018-01-06] MEDS: PHENYLEPHRINE INJ 20 MG in SODIUM CHL 0.9% 250 ML IV SCH (02:41)
[2018-01-06 02:47] LABS: Band Neutrophils % (manual) 17; Lymphocytes % (manual) 3 (10.0-50.0); Monocytes % (manual) 3 (0-12)
[2018-01-06 02:48] LABS: Albumin 2.2 g/dL (3.4-5.0); BUN/Creatinine Ratio 38.6; Bilirubin, Total 0.4 mg/dL (0.2-1.0); Calcium 7.5 mg/dL (8.5-10.1); Magnesium 2.2 mg/dL (1.6-2.6); Phosphorus 3.4 mg/dL (2.5-4.90); Potassium 3.4 mmol/L (3.5-5.1); Pre Albumin 12.2 mg/dL (20.0-40.0); Total Protein 4.9 g/dL (6.4-8.2)
[2018-01-06] MEDS: ALBUMIN 25% 50 ML IV SCH ×3 (05:18→22:23)
[2018-01-06] MEDS: LEVOTHYROXINE SODIUM 25 MCG TAB PO SCH (07:30)
[2018-01-06] MEDS ORDERED: POTASSIUM CHL 20MEQ/100ML 100 ML IV ONE (08:45)
[2018-01-06] MEDS: FLUCONAZOLE 200MG/100ML 100 ML IV SCH (10:17)
[2018-01-06] MEDS: HYDROCORTISONE SOD SUCC 100 MG/2ML INJ VIAL IV SCH ×2 (10:17→22:24)
[2018-01-06] MEDS: PANTOPRAZOLE 40 MG/10 ML VIAL IV SCH ×2 (10:18→22:24)
[2018-01-06] MEDS: MEROPENEM 500mg/10ml IVPUSH 10 ML IV SCH ×2 (10:27→22:24)
[2018-01-06] MEDS ORDERED: MORPHINE SULFATE 4 MG/ML SYR/VIAL IV PRN ×2 (11:30)
[2018-01-06] MEDS ORDERED: FUROSEMIDE 20 MG/2 ML VIAL IV ONE (11:30)
[2018-01-06] MEDS ORDERED: LEVOTHYROXINE SODIUM 100 MCG/5 ML INJ IV ONE (11:30)
[2018-01-06] MEDS: POTASSIUM CHL 20MEQ/100ML 100 ML IV SCH ×2 (12:58→14:35)
[2018-01-06] MEDS ORDERED: FAT EMULSION IV NR ×11 (20:00)
[2018-01-06] MEDS ORDERED: SODIUM CHLORIDE IV NR ×11 (20:00)
[2018-01-06] MEDS ORDERED: POTASSIUM CHLORIDE IV NR ×11 (20:00)
[2018-01-06] MEDS ORDERED: [UNRECOGNIZED DRUG - OTHER] IV NR ×11 (20:00)
[2018-01-07] VITALS (71 sets, daily range): BP systolic 100–173; BP diastolic 39–93
[2018-01-07] MEDS: InsuLIN REG 1unit/0.01ml Soln (100units/ml) SC SCH ×4 (00:30→18:00)
[2018-01-07] MEDS: ACCU-CHEK COMFORT CURVE STRIP VI SCH ×5 (00:30→23:59)
[2018-01-07] MEDS: AMIODARONE HCL 900 MG in DEXTROSE 500 ML IV SCH ×2 (00:58→18:23)
[2018-01-07] MEDS: ALBUMIN 25% 50 ML IV SCH ×3 (05:37→22:00)
[2018-01-07] MEDS: SODIUM CHLOR 0.9% PF (SALINE LOCK) 10ML VIAL IV SCH ×3 (05:37→22:12)
[2018-01-07 06:13] LABS: Hematocrit 22.3 % (36.0-46.0); Hemoglobin 7.5 g/dL (12.2-16.2); Mean Corpuscular Hemoglobin 30.3 pg (28.0-32.0); Mean Corpuscular Hgb Conc. 33.5 g/dL (32.0-36.0); Mean Corpuscular Volume 90.6 fL (80.0-100.0); Platelet Count (auto) 163 10^3/uL (140-450); Red Blood Cells 2.46 10^6/uL (4.0-5.20); Red Cell Distribution Width 15.5 % (11.8-14.3); White Blood Cell 11.5 10^3/uL (4.4-10.8)
[2018-01-07 06:21] LABS: Basophils % (manual) 0 (0.0-2.0); Eosinophils % (manual) 0 (0-7)
[2018-01-07 06:22] LABS: Blast Cells 0; Metamyelocytes % 0; Myelocytes % 0; Promyelocytes % 0; Reactive Lymphocytes 0
[2018-01-07 06:35] LABS: Albumin 2.4 g/dL (3.4-5.0); BUN/Creatinine Ratio 44.9; Bilirubin, Total 0.6 mg/dL (0.2-1.0); Calcium 7.6 mg/dL (8.5-10.1); Phosphorus 3.5 mg/dL (2.5-4.90); Potassium 3.9 mmol/L (3.5-5.1); Total Protein 5.1 g/dL (6.4-8.2)
[2018-01-07 06:53] LABS: Band Neutrophils % (manual) 4; Lymphocytes % (manual) 5 (10.0-50.0); Monocytes % (manual) 5 (0-12)
[2018-01-07] MEDS: PANTOPRAZOLE 40 MG/10 ML VIAL IV SCH ×2 (11:46→22:12)
[2018-01-07] MEDS: FLUCONAZOLE 200MG/100ML 100 ML IV SCH (11:47)
[2018-01-07] MEDS: HYDROCORTISONE SOD SUCC 100 MG/2ML INJ VIAL IV SCH ×2 (11:47→22:12)
[2018-01-07] MEDS: MEROPENEM 500mg/10ml IVPUSH 10 ML IV SCH ×2 (11:48→22:12)
[2018-01-07] MEDS: LEVOTHYROXINE SODIUM 100 MCG/5 ML INJ IV SCH (11:53)
[2018-01-07] MEDS ORDERED: FUROSEMIDE 40 MG/4 ML VIAL IV ONE (17:15)
[2018-01-07] MEDS ORDERED: TPN PER PHARMACY IV NR ×11 (20:00)
[2018-01-07] MEDS: ATORVASTATIN 20 MG TAB PO SCH (22:00)
[2018-01-08] VITALS (90 sets, daily range): BP systolic 115–178; BP diastolic 47–88
[2018-01-08 04:21] LABS: Hematocrit 30.1 % (36.0-46.0); Hemoglobin 10.3 g/dL (12.2-16.2); Mean Corpuscular Hemoglobin 30.3 pg (28.0-32.0); Mean Corpuscular Hgb Conc. 34.1 g/dL (32.0-36.0); Mean Corpuscular Volume 88.9 fL (80.0-100.0); Platelet Count (auto) 135 10^3/uL (140-450); Red Blood Cells 3.38 10^6/uL (4.0-5.20); Red Cell Distribution Width 15.6 % (11.8-14.3); White Blood Cell 11.2 10^3/uL (4.4-10.8)
[2018-01-08 04:24] LABS: Basophils % (manual) 0 (0.0-2.0); Blast Cells 0; Eosinophils % (manual) 0 (0-7); Metamyelocytes % 0; Myelocytes % 0; Promyelocytes % 0; Reactive Lymphocytes 0
[2018-01-08 04:46] LABS: Albumin 2.9 g/dL (3.4-5.0); Bilirubin, Total 1.4 mg/dL (0.2-1.0); Calcium 7.7 mg/dL (8.5-10.1); Magnesium 1.9 mg/dL (1.6-2.6); Phosphorus 4.5 mg/dL (2.5-4.90); Potassium 3.8 mmol/L (3.5-5.1); Pre Albumin 14.5 mg/dL (20.0-40.0); Total Protein 5.5 g/dL (6.4-8.2)
[2018-01-08 05:09] LABS: Band Neutrophils % (manual) 6; Lymphocytes % (manual) 3 (10.0-50.0); Monocytes % (manual) 2 (0-12)
[2018-01-08] MEDS: ACCU-CHEK COMFORT CURVE STRIP VI SCH ×4 (06:00→23:40)
[2018-01-08] MEDS: ALBUMIN 25% 50 ML IV SCH ×3 (06:00→22:29)
[2018-01-08] MEDS: InsuLIN REG 1unit/0.01ml Soln (100units/ml) SC SCH ×4 (06:00→17:44)
[2018-01-08] MEDS: SODIUM CHLOR 0.9% PF (SALINE LOCK) 10ML VIAL IV SCH ×3 (06:00→22:27)
[2018-01-08] MEDS: ASPirin-EC 81 mg tab PO SCH (10:00)
[2018-01-08] MEDS: FLUCONAZOLE 200MG/100ML 100 ML IV SCH (10:10)
[2018-01-08] MEDS: PANTOPRAZOLE 40 MG/10 ML VIAL IV SCH ×2 (10:10→22:26)
[2018-01-08] MEDS: LEVOTHYROXINE SODIUM 100 MCG/5 ML INJ IV SCH (10:11)
[2018-01-08] MEDS: HYDROCORTISONE SOD SUCC 100 MG/2ML INJ VIAL IV SCH ×2 (10:11→22:27)
[2018-01-08] MEDS: MEROPENEM 500mg/10ml IVPUSH 10 ML IV SCH ×2 (10:12→22:26)
[2018-01-08] MEDS: ALBUTEROL SULF 2.5 MG/0.5ML(0.5%) NEB SOLN NEB SCH ×2 (13:34→18:15)
[2018-01-08] MEDS ORDERED: LABETALOL HCL 5 MG/ML ML 20ML VIAL IV PRN (17:30)
[2018-01-08] MEDS: AMIODARONE HCL 900 MG in DEXTROSE 500 ML IV SCH (18:23)
[2018-01-08] MEDS ORDERED: TPN PER PHARMACY IV NR ×8 (20:00)
[2018-01-08] MEDS: ATORVASTATIN 20 MG TAB PO SCH (22:00)
[2018-01-09] VITALS (44 sets, daily range): BP systolic 54–159; BP diastolic 29–81
[2018-01-09] MEDS: InsuLIN REG 1unit/0.01ml Soln (100units/ml) SC SCH ×5 (00:27→23:52)
[2018-01-09 03:56] LABS: Hematocrit 30.7 % (36.0-46.0); Hemoglobin 10.4 g/dL (12.2-16.2); Mean Corpuscular Hemoglobin 30.3 pg (28.0-32.0); Mean Corpuscular Hgb Conc. 33.7 g/dL (32.0-36.0); Platelet Count (auto) 140 10^3/uL (140-450); Red Blood Cells 3.42 10^6/uL (4.0-5.20); Red Cell Distribution Width 15.9 % (11.8-14.3); White Blood Cell 12.6 10^3/uL (4.4-10.8)
[2018-01-09 04:08] LABS: Eosinophils % (manual) 0 (0-7)
[2018-01-09 04:09] LABS: Basophils % (manual) 0 (0.0-2.0); Blast Cells 0; Myelocytes % 0; Promyelocytes % 0; Reactive Lymphocytes 0
[2018-01-09 04:17] LABS: Albumin 2.9 g/dL (3.4-5.0); Bilirubin, Total 1.4 mg/dL (0.2-1.0); Calcium 7.8 mg/dL (8.5-10.1); Magnesium 2.1 mg/dL (1.6-2.6); Phosphorus 3.1 mg/dL (2.5-4.90); Potassium 4.2 mmol/L (3.5-5.1); Total Protein 5.5 g/dL (6.4-8.2)
[2018-01-09 04:57] LABS: Band Neutrophils % (manual) 13; Lymphocytes % (manual) 5 (10.0-50.0); Metamyelocytes % 2; Monocytes % (manual) 10 (0-12)
[2018-01-09] MEDS: ALBUMIN 25% 50 ML IV SCH (06:00)
[2018-01-09] MEDS: SODIUM CHLOR 0.9% PF (SALINE LOCK) 10ML VIAL IV SCH ×3 (06:00→21:53)
[2018-01-09] MEDS: ACCU-CHEK COMFORT CURVE STRIP VI SCH ×4 (06:00→23:51)
[2018-01-09] MEDS: ALBUTEROL SULF 2.5 MG/0.5ML(0.5%) NEB SOLN NEB SCH ×5 (06:03→22:55)
[2018-01-09] MEDS: ASPirin-EC 81 mg tab PO SCH (10:00)
[2018-01-09] MEDS: PANTOPRAZOLE 40 MG/10 ML VIAL IV SCH ×2 (10:43→21:53)
[2018-01-09] MEDS: LEVOTHYROXINE SODIUM 100 MCG/5 ML INJ IV SCH (10:43)
[2018-01-09] MEDS: FLUCONAZOLE 200MG/100ML 100 ML IV SCH (10:43)
[2018-01-09] MEDS: HYDROCORTISONE SOD SUCC 100 MG/2ML INJ VIAL IV SCH ×2 (10:44→21:53)
[2018-01-09] MEDS: MEROPENEM 500mg/10ml IVPUSH 10 ML IV SCH ×2 (10:46→21:58)
[2018-01-09] MEDS ORDERED: NITROGLYCERIN 0.4 MG SL TAB SL PRN (12:30)
[2018-01-09] MEDS ORDERED: LABETALOL HCL 5 MG/ML ML 20ML VIAL IV PRN (12:30)
[2018-01-09] MEDS ORDERED: DOCUSATE SOD 100 MG CAP PO PRN (12:30)
[2018-01-09] MEDS ORDERED: ONDANSETRON HCL 4 MG/2 ML VIAL IV PRN (12:30)
[2018-01-09] MEDS ORDERED: FUROSEMIDE 40 MG/4 ML VIAL IV ONE (12:30)
[2018-01-09] MEDS: AMIODARONE HCL 900 MG in DEXTROSE 500 ML IV SCH (15:45)
[2018-01-09] MEDS ORDERED: TPN PER PHARMACY IV NR ×9 (20:00)
[2018-01-09] MEDS ORDERED: NOREPINEPHRINE 8 MG/250ML KIT 250 ML IV ONE (23:29)
[2018-01-10] VITALS (116 sets, daily range): BP systolic 47–179; BP diastolic 19–138
[2018-01-10] MEDS ORDERED: NOREPINEPHRINE 8 MG/250ML KIT 250 ML IV SCH
[2018-01-10] MEDS ORDERED: PHENYLEPHRINE IV 250 ML IV ONE ×2 (05:53→23:41)
[2018-01-10] MEDS ORDERED: PHENYLEPHRINE INJ 20 MG in D5W 5% 250 ML IV SCH (06:00)
[2018-01-10] MEDS: InsuLIN REG 1unit/0.01ml Soln (100units/ml) SC SCH ×3 (06:00→18:13)
[2018-01-10] MEDS: ALBUTEROL SULF 2.5 MG/0.5ML(0.5%) NEB SOLN NEB SCH ×4 (06:05→18:22)
[2018-01-10] MEDS: SODIUM CHLOR 0.9% PF (SALINE LOCK) 10ML VIAL IV SCH ×3 (06:11→22:07)
[2018-01-10] MEDS: ACCU-CHEK COMFORT CURVE STRIP VI SCH ×3 (06:24→18:00)
[2018-01-10] MEDS ORDERED: ETOMIDATE (2MG/ML) 20ML VIAL IV ONE ×2 (06:50→07:30)
[2018-01-10] MEDS ORDERED: SUCCINYLCHOLINE CHLORIDE 20 MG/ML 10ML VIAL IV ONE ×2 (06:51→07:30)
[2018-01-10 08:35] LABS: Hematocrit 41.2 % (36.0-46.0); Hemoglobin 13.1 g/dL (12.2-16.2); Mean Corpuscular Hemoglobin 29.9 pg (28.0-32.0); Mean Corpuscular Hgb Conc. 31.8 g/dL (32.0-36.0); Mean Corpuscular Volume 93.9 fL (80.0-100.0); Platelet Count (auto) 154 10^3/uL (140-450); Red Blood Cells 4.39 10^6/uL (4.0-5.20); Red Cell Distribution Width 16.4 % (11.8-14.3); White Blood Cell 14.6 10^3/uL (4.4-10.8)
[2018-01-10 08:44] LABS: Basophils % (manual) 0 (0.0-2.0); Promyelocytes % 0; Reactive Lymphocytes 0
[2018-01-10 08:45] LABS: Blast Cells 0
[2018-01-10 08:56] LABS: BUN/Creatinine Ratio 37.8; Bilirubin, Total 3.6 mg/dL (0.2-1.0); Calcium 7.3 mg/dL (8.5-10.1); Magnesium 2.2 mg/dL (1.6-2.6); Phosphorus 3.7 mg/dL (2.5-4.90); Potassium 5.4 mmol/L (3.5-5.1); Total Protein 4.6 g/dL (6.4-8.2)
[2018-01-10] MEDS: MIDAZOLAM DRIP 50 mg/50mL 50 ML IV SCH ×2 (09:10→18:00)
[2018-01-10] MEDS: ASPirin-EC 81 mg tab PO SCH (10:00)
[2018-01-10] MEDS ORDERED: FUROSEMIDE 40 MG/4 ML VIAL IV SCH (10:00)
[2018-01-10] MEDS: NOREPINEPHRINE BITARTRATE 32 MG in D5W 5% 218 ML IV SCH (10:30)
[2018-01-10] MEDS: PHENYLEPHRINE INJ 80 MG in SODIUM CHL 0.9% 250 ML IV SCH ×2 (10:30→16:49)
[2018-01-10] MEDS: PANTOPRAZOLE 40 MG/10 ML VIAL IV SCH ×2 (10:42→22:00)
[2018-01-10] MEDS: MEROPENEM 500mg/10ml IVPUSH 10 ML IV SCH ×2 (10:42→22:00)
[2018-01-10] MEDS: LEVOTHYROXINE SODIUM 100 MCG/5 ML INJ IV SCH (10:42)
[2018-01-10] MEDS: HYDROCORTISONE SOD SUCC 100 MG/2ML INJ VIAL IV SCH ×2 (10:42→22:00)
[2018-01-10] MEDS: FLUCONAZOLE 200MG/100ML 100 ML IV SCH (11:00)
[2018-01-10] MEDS ORDERED: SODIUM CHLORIDE 0.9% 1,000 ML IV ONE (12:00)
[2018-01-10 13:03] LABS: Band Neutrophils % (manual) 26; Eosinophils % (manual) 1 (0-7); Lymphocytes % (manual) 28 (10.0-50.0); Metamyelocytes % 2; Monocytes % (manual) 8 (0-12); Myelocytes % 3
[2018-01-10] MEDS: ALBUMIN 25% 50 ML IV SCH ×2 (13:25→22:00)
[2018-01-10] MEDS ORDERED: HYDROCORTISONE SOD SUCC 100 MG/2ML INJ VIAL IV ONE (14:00)
[2018-01-10] MEDS ORDERED: SODIUM CHLORIDE 0.9% 500 ML IV ONE (14:00)
[2018-01-10] MEDS: LINEZOLID 600MG/300ML 300 ML IV SCH (14:32)
[2018-01-10] MEDS: SODIUM CHLORIDE 0.9% 1,000 ML IV SCH (15:00)
[2018-01-10] MEDS: AMIODARONE HCL 900 MG in DEXTROSE 500 ML IV SCH (15:45)
[2018-01-10 18:03] LABS: BUN/Creatinine Ratio 33.6; Calcium 7.3 mg/dL (8.5-10.1)
[2018-01-10 18:26] LABS: Potassium 6.4 mmol/L (3.5-5.1)
[2018-01-10] MEDS ORDERED: DEXTROSE (50%) 50ML SYRG IV ONE (18:45)
[2018-01-10] MEDS ORDERED: InsuLIN REG 1unit/0.01ml Soln (100units/ml) IV ONE (18:45)
[2018-01-10] MEDS ORDERED: CALCIUM GLUC 4.65meq/50ml D5AE 50 ML IV ONE ×2 (18:45→18:52)
[2018-01-10] MEDS: SODIUM BICARBONATE 50ML VIAL 50 ML in SOD CHL 0.45% 1,000 ML IV SCH (18:45)
[2018-01-10] MEDS ORDERED: InsuLIN REG 1unit/0.01ml Soln (100units/ml) ONE (18:50)
[2018-01-10] MEDS ORDERED: DEXTROSE 50% SYRINGE 50 ML IV ONE (18:51)
[2018-01-10] MEDS ORDERED: SODIUM BICARBONATE 8.4 % INJ 50ML VIAL IV ONE (19:30)
[2018-01-10] MEDS ORDERED: SODIUM BICARBONATE 8.4% INJ 50ML SYRINGE ONE (20:02)
[2018-01-10] MEDS: TPN PER PHARMACY IV NR ×8 (20:25)
[2018-01-10 20:31] LABS: Lactic Acid w/Reflex 7.3 mmol/L (0.4-2.0)
[2018-01-10 22:36] LABS: BUN/Creatinine Ratio 32.2; Calcium 7.4 mg/dL (8.5-10.1)
[2018-01-10 22:42] LABS: Potassium 6.7 mmol/L (3.5-5.1)
[2018-01-10] MEDS ORDERED: FUROSEMIDE INJECTION 10 ML ONE (23:02)
[2018-01-10] MEDS ORDERED: PHENYLEPHRINE HCL 10 MG/ML VL ONE (23:41)
[2018-01-11] VITALS (88 sets, daily range): BP systolic 53–178; BP diastolic 23–97
[2018-01-11] MEDS: LINEZOLID 600MG/300ML 300 ML IV SCH ×2 (03:00→15:07)
[2018-01-11 03:52] LABS: Mean Corpuscular Hemoglobin 29.5 pg (28.0-32.0); Mean Corpuscular Hgb Conc. 31.8 g/dL (32.0-36.0)
[2018-01-11 03:57] LABS: Hematocrit 37.3 % (36.0-46.0); Hemoglobin 11.9 g/dL (12.2-16.2); Mean Corpuscular Volume 92.7 fL (80.0-100.0); Platelet Count (auto) 95 10^3/uL (140-450); Red Blood Cells 4.03 10^6/uL (4.0-5.20); Red Cell Distribution Width 16.4 % (11.8-14.3)
[2018-01-11 04:05] LABS: White Blood Cell 43.8 10^3/uL (4.4-10.8)
[2018-01-11 04:07] LABS: Lactic Acid w/Reflex 7.1 mmol/L (0.4-2.0)
[2018-01-11 04:08] LABS: Basophils % (manual) 0 (0.0-2.0); Blast Cells 0; Eosinophils % (manual) 0 (0-7); Promyelocytes % 0; Reactive Lymphocytes 0
[2018-01-11] MEDS: SODIUM CHLORIDE 0.9% 1,000 ML IV SCH (04:20)
[2018-01-11 04:27] LABS: Albumin 1.8 g/dL (3.4-5.0); BUN/Creatinine Ratio 30.2; Bilirubin, Total 2.9 mg/dL (0.2-1.0); Calcium 7.1 mg/dL (8.5-10.1); Magnesium 2.1 mg/dL (1.6-2.6); Phosphorus 4.4 mg/dL (2.5-4.90); Pre Albumin 6.4 mg/dL (20.0-40.0); Total Protein 3.6 g/dL (6.4-8.2)
[2018-01-11 04:29] LABS: Potassium 6.3 mmol/L (3.5-5.1)
[2018-01-11 04:33] LABS: Band Neutrophils % (manual) 38; Lymphocytes % (manual) 10 (10.0-50.0); Metamyelocytes % 5; Monocytes % (manual) 3 (0-12); Myelocytes % 1
[2018-01-11] MEDS: ALBUTEROL SULF 2.5 MG/0.5ML(0.5%) NEB SOLN NEB SCH ×4 (05:45→18:37)
[2018-01-11] MEDS ORDERED: VASOPRESSIN 20 UNIT/ML ONE (05:59)
[2018-01-11] MEDS: ALBUMIN 25% 50 ML IV SCH ×3 (06:00→22:03)
[2018-01-11] MEDS ORDERED: InsuLIN REG 1unit/0.01ml Soln (100units/ml) ONE (06:00)
[2018-01-11] MEDS: InsuLIN REG 1unit/0.01ml Soln (100units/ml) SC SCH ×4 (06:00→18:15)
[2018-01-11] MEDS: HYDROCORTISONE SOD SUCC 100 MG/2ML INJ VIAL IV SCH ×3 (06:00→22:04)
[2018-01-11] MEDS: ACCU-CHEK COMFORT CURVE STRIP VI SCH ×4 (06:00→18:00)
[2018-01-11] MEDS: SODIUM CHLOR 0.9% PF (SALINE LOCK) 10ML VIAL IV SCH ×3 (06:00→22:04)
[2018-01-11] MEDS ORDERED: SODIUM POLYSTYRENE SULF 15GM/60ML SUSP ONE ×2 (06:02→12:11)
[2018-01-11] MEDS ORDERED: CALCIUM GLUC 4.65meq/50ml D5AE 50 ML IV ONE (06:03)
[2018-01-11] MEDS ORDERED: SODIUM BICARBONATE 8.4% INJ 50ML SYRINGE ONE (06:04)
[2018-01-11] MEDS ORDERED: DEXTROSE 50% SYRINGE 50 ML IV ONE (06:04)
[2018-01-11] MEDS: PHENYLEPHRINE INJ 80 MG in SODIUM CHL 0.9% 250 ML IV SCH ×2 (08:00→15:00)
[2018-01-11] MEDS: VASOPRESSIN 50 UNITS in D5W 5% 247.5 ML IV SCH (08:00)
[2018-01-11] MEDS: PANTOPRAZOLE 40 MG/10 ML VIAL IV SCH ×2 (10:29→22:04)
[2018-01-11] MEDS: FLUCONAZOLE 200MG/100ML 100 ML IV SCH ×3 (10:29→18:00)
[2018-01-11] MEDS: MEROPENEM 500mg/10ml IVPUSH 10 ML IV SCH ×2 (10:29→22:00)
[2018-01-11] MEDS: LEVOTHYROXINE SODIUM 100 MCG/5 ML INJ IV SCH (10:29)
[2018-01-11] MEDS: SODIUM BICARBONATE 50ML VIAL 50 ML in SOD CHL 0.45% 1,000 ML IV SCH ×3 (11:40→20:39)
[2018-01-11] MEDS: NOREPINEPHRINE BITARTRATE 32 MG in D5W 5% 218 ML IV SCH (12:00)
[2018-01-11] MEDS ORDERED: SODIUM POLYSTYRENE SULF 15GM/60ML SUSP NG ONE (12:15)
[2018-01-11] MEDS: FUROSEMIDE INJECTION 250 MG in D5W 5% 225 ML IV SCH (12:20)
[2018-01-11] MEDS ORDERED: EPINEPHrine HCL 250 ML IV ONE (14:21)
[2018-01-11] MEDS ORDERED: FLUCONAZOLE 200MG/100ML 100 ML IV SCH (15:00)
[2018-01-11] MEDS: EPINEPHrine HCL INJECTION 4 MG in SODIUM CHL 0.9% 250 ML IV SCH (15:15)
[2018-01-11] MEDS: AMIODARONE HCL 900 MG in DEXTROSE 500 ML IV SCH (15:45)
[2018-01-11] MEDS: TPN PER PHARMACY IV NR ×8 (19:06)
[2018-01-11] MEDS ORDERED: TPN PER PHARMACY IV NR ×8 (20:00)
[2018-01-12] VITALS (94 sets, daily range): BP systolic 69–144; BP diastolic 34–96
[2018-01-12] MEDS: LINEZOLID 600MG/300ML 300 ML IV SCH ×2 (03:00→19:05)
[2018-01-12 03:51] LABS: Hemoglobin 10.7 g/dL (12.2-16.2)
[2018-01-12 03:57] LABS: Hematocrit 34.6 % (36.0-46.0); Mean Corpuscular Hemoglobin 29.8 pg (28.0-32.0); Mean Corpuscular Volume 96.2 fL (80.0-100.0); Platelet Count (auto) 84 10^3/uL (140-450); Red Blood Cells 3.59 10^6/uL (4.0-5.20); Red Cell Distribution Width 17.6 % (11.8-14.3)
[2018-01-12 04:12] LABS: White Blood Cell 53.9 10^3/uL (4.4-10.8)
[2018-01-12 04:15] LABS: Basophils % (manual) 0 (0.0-2.0); Eosinophils % (manual) 0 (0-7); Promyelocytes % 0; Reactive Lymphocytes 0
[2018-01-12 04:16] LABS: Albumin 1.9 g/dL (3.4-5.0); BUN/Creatinine Ratio 27.6; Bilirubin, Total 3.5 mg/dL (0.2-1.0); Blast Cells 0; Calcium 6.5 mg/dL (8.5-10.1); Phosphorus 7.5 mg/dL (2.5-4.90); Pre Albumin 4.5 mg/dL (20.0-40.0); Total Protein 3.6 g/dL (6.4-8.2)
[2018-01-12] MEDS ORDERED: NOREPINEPHRINE BITARTRATE 6 ML IV ONE (04:41)
[2018-01-12] MEDS ORDERED: NOREPINEPHRINE 8 MG/250ML KIT 500 ML IV ONE (04:48)
[2018-01-12] MEDS ORDERED: InsuLIN REG 1unit/0.01ml Soln (100units/ml) IV ONE (05:00)
[2018-01-12] MEDS: SODIUM BICARBONATE 50ML VIAL 100 ML in SOD CHL 0.45% 1,000 ML IV SCH ×2 (05:00→15:00)
[2018-01-12] MEDS ORDERED: CALCIUM GLUC 4.65meq/50ml D5AE 50 ML IV ONE (05:00)
[2018-01-12] MEDS ORDERED: DEXTROSE (50%) 50ML SYRG IV ONE (05:00)
[2018-01-12] MEDS ORDERED: SODIUM POLYSTYRENE SULF 15GM/60ML SUSP PO ONE (05:00)
[2018-01-12] MEDS: NOREPINEPHRINE BITARTRATE 32 MG in D5W 5% 218 ML IV SCH (05:00)
[2018-01-12 05:05] LABS: Band Neutrophils % (manual) 26; Lymphocytes % (manual) 7 (10.0-50.0); Metamyelocytes % 7; Monocytes % (manual) 3 (0-12); Myelocytes % 1
[2018-01-12] MEDS ORDERED: EPINEPHrine HCL 250 ML IV ONE ×3 (05:06→22:03)
[2018-01-12] MEDS ORDERED: PHENYLEPHRINE HCL 10 MG/ML VL ONE ×2 (05:13→05:21)
[2018-01-12] MEDS ORDERED: PHENYLEPHRINE IV 250 ML IV ONE (05:13)
[2018-01-12] MEDS ORDERED: SODIUM CHLORIDE 0.9 % NEB SOLN 3ML NEB ONE (05:30)
[2018-01-12] MEDS ORDERED: SODIUM BICARBONATE 8.4 % INJ 50ML VIAL IV ONE (05:37)
[2018-01-12] MEDS: InsuLIN REG 1unit/0.01ml Soln (100units/ml) SC SCH ×4 (05:58→18:20)
[2018-01-12] MEDS: ALBUMIN 25% 50 ML IV SCH ×3 (06:00→22:06)
[2018-01-12] MEDS: HYDROCORTISONE SOD SUCC 100 MG/2ML INJ VIAL IV SCH ×3 (06:00→22:07)
[2018-01-12] MEDS: SODIUM CHLOR 0.9% PF (SALINE LOCK) 10ML VIAL IV SCH ×3 (06:00→22:06)
[2018-01-12] MEDS: ACCU-CHEK COMFORT CURVE STRIP VI SCH ×4 (06:00→18:19)
[2018-01-12] MEDS: ALBUTEROL SULF 2.5 MG/0.5ML(0.5%) NEB SOLN NEB SCH ×2 (06:09→19:06)
[2018-01-12] MEDS: VASOPRESSIN 50 UNITS in D5W 5% 247.5 ML IV SCH ×2 (08:00→19:05)
[2018-01-12] MEDS ORDERED: FLUCONAZOLE 200MG/100ML 100 ML IV SCH (09:00)
[2018-01-12] MEDS: MIDAZOLAM DRIP 50 mg/50mL 50 ML IV SCH (09:10)
[2018-01-12] MEDS: PANTOPRAZOLE 40 MG/10 ML VIAL IV SCH ×2 (10:21→22:06)
[2018-01-12] MEDS: LEVOTHYROXINE SODIUM 100 MCG/5 ML INJ IV SCH (10:22)
[2018-01-12] MEDS: MEROPENEM 500mg/10ml IVPUSH 10 ML IV SCH ×2 (10:24→22:06)
[2018-01-12] MEDS: FUROSEMIDE INJECTION 250 MG in D5W 5% 225 ML IV SCH (12:10)
[2018-01-12] MEDS ORDERED: INSULIN LANTUS (GLARGINE) 1 /0.01ml (100units/ml) SC ONE ×2 (12:30)
[2018-01-12] MEDS ORDERED: MICAFUNGIN SODIUM 100 MG in SODIUM CHL 0.9% 100 ML IV ONE (12:30)
[2018-01-12] MEDS ORDERED: FUROSEMIDE INJECTION 250 MG in D5W 5% 225 ML IV SCH (13:45)
[2018-01-12] MEDS: SODIUM POLYSTYRENE SULF 15GM/60ML SUSP NG SCH ×3 (14:15→22:07)
[2018-01-12] MEDS: EPINEPHrine HCL INJECTION 4 MG in SODIUM CHL 0.9% 250 ML IV SCH (15:15)
[2018-01-12] MEDS: AMIODARONE HCL 900 MG in DEXTROSE 500 ML IV SCH (15:45)
[2018-01-12] MEDS ORDERED: TPN PER PHARMACY IV NR ×8 (20:00)
[2018-01-12] MEDS ORDERED: INSULIN LANTUS (GLARGINE) 1 /0.01ml (100units/ml) SC SCH ×2 (22:00)
[2018-01-12] MEDS ORDERED: SODIUM POLYSTYRENE SULF 15GM/60ML SUSP NG SCH (22:00)
[2018-01-12] MEDS ORDERED: SODIUM BICARBONATE 8.4% INJ 50ML SYRINGE ONE (23:18)
[2018-01-13] MEDS ORDERED: SODIUM BICARBONATE 8.4% INJ 50ML SYRINGE IV ONE (03:23)
[2018-01-13] MEDS ORDERED: EPINEPHrine HCL 1 MG/10 ML SYRG IV ONE (03:23)
[2018-01-13] MEDS ORDERED: ATROPINE SULF 0.5 MG/5ML SYR IV ONE (03:23)
[2018-01-13] MEDS ORDERED: CALCIUM CHLOR(10%) 100MG/ML 10ML SYRINGE IV ONE (03:23)
[2018-01-13] MEDS ORDERED: SODIUM CHL 0.9% 1000 ML BAG XX ONE (09:00)
[2018-01-13] MEDS ORDERED: MICAFUNGIN SODIUM 100 MG in SODIUM CHL 0.9% 100 ML IV SCH (10:00)
== END 2018-01-12 23:40 | disposition expired | DRG 720 ==
LOC: EDBD 09:39 → ER 09:39 → TELE 09:40 → TELE-CENTR 16:21 → DOU IN ICU 12-28 07:41 → ICU WEST 12-28 14:09 → DOU IN ICU 01-09 16:38 → ICU WEST 01-10 09:40
PROVIDERS: ADMIT Internal Medicine; ATTEND Internal Medicine
PROC: 5A1955Z Respiratory Ventilation, Greater than 96 Consecutive Hours (ICD-10-PCS; principal; 2017-12-28)
PROC: 4A023N7 Measurement of Cardiac Sampling and Pressure, Left Heart, Percutaneous Approach (ICD-10-PCS; 2017-12-28)
PROC: B2111ZZ Fluoroscopy of Multiple Coronary Arteries using Low Osmolar Contrast (ICD-10-PCS; 2017-12-28)
PROC: B2131ZZ Fluoroscopy of Multiple Coronary Artery Bypass Grafts using Low Osmolar Contrast (ICD-10-PCS; 2017-12-28)
PROC: B2181ZZ Fluoroscopy of Left Internal Mammary Bypass Graft using Low Osmolar Contrast (ICD-10-PCS; 2017-12-28)
PROC: 0BH17EZ Insertion of Endotracheal Airway into Trachea, Via Natural or Artificial Opening (ICD-10-PCS; 2017-12-28)
PROC: 02H633Z Insertion of Infusion Device into Right Atrium, Percutaneous Approach (ICD-10-PCS; 2017-12-28)
PROC: 30233N1 Transfusion of Nonautologous Red Blood Cells into Peripheral Vein, Percutaneous Approach (ICD-10-PCS; 2018-01-01)
PROC: 30233R1 Transfusion of Nonautologous Platelets into Peripheral Vein, Percutaneous Approach (ICD-10-PCS; 2018-01-01)
PROC: 06H033Z Insertion of Infusion Device into Inferior Vena Cava, Percutaneous Approach (ICD-10-PCS; 2018-01-02)
PROC: 5A09357 Assistance with Respiratory Ventilation, Less than 24 Consecutive Hours, Continuous Positive Airway Pressure (ICD-10-PCS; 2018-01-09)
PROC: 5A1945Z Respiratory Ventilation, 24-96 Consecutive Hours (ICD-10-PCS; 2018-01-10)
PROC: 0BH17EZ Insertion of Endotracheal Airway into Trachea, Via Natural or Artificial Opening (ICD-10-PCS; 2018-01-10)
DX: A41.51 Sepsis due to Escherichia coli [E. coli] (principal); I21.09 ST elevation (STEMI) myocardial infarction involving other coronary artery of anterior wall; J96.01 Acute respiratory failure with hypoxia; I46.9 Cardiac arrest, cause unspecified; K72.00 Acute and subacute hepatic failure without coma; N17.0 Acute kidney failure with tubular necrosis; R65.21 Severe sepsis with septic shock; G93.41 Metabolic encephalopathy; E43 Unspecified severe protein-calorie malnutrition; B49 Unspecified mycosis; J15.5 Pneumonia due to Escherichia coli; I13.0 Hypertensive heart and chronic kidney disease with heart failure and stage 1 through stage 4 chronic kidney disease, or unspecified chronic kidney disease; S42.211A Unspecified displaced fracture of surgical neck of right humerus, initial encounter for closed fracture; G93.1 Anoxic brain damage, not elsewhere classified; I50.32 Chronic diastolic (congestive) heart failure; D68.69 Other thrombophilia; N18.4 Chronic kidney disease, stage 4 (severe); E11.21 Type 2 diabetes mellitus with diabetic nephropathy; D69.6 Thrombocytopenia, unspecified; D63.8 Anemia in other chronic diseases classified elsewhere; E11.22 Type 2 diabetes mellitus with diabetic chronic kidney disease; S22.31XA Fracture of one rib, right side, initial encounter for closed fracture; E83.41 Hypermagnesemia; E03.9 Hypothyroidism, unspecified; E23.0 Hypopituitarism; Z68.41 Body mass index [BMI] 40.0-44.9, adult; E66.01 Morbid (severe) obesity due to excess calories; E78.5 Hyperlipidemia, unspecified; E86.0 Dehydration; E87.5 Hyperkalemia; I25.10 Atherosclerotic heart disease of native coronary artery without angina pectoris; I48.92 Unspecified atrial flutter; M85.80 Other specified disorders of bone density and structure, unspecified site; N39.0 Urinary tract infection, site not specified; S51.011A Laceration without foreign body of right elbow, initial encounter; E66.9 Obesity, unspecified; K92.1 Melena; W18.39XA Other fall on same level, initial encounter; S51.012A Laceration without foreign body of left elbow, initial encounter; K59.00 Constipation, unspecified; Z16.12 Extended spectrum beta lactamase (ESBL) resistance; G47.00 Insomnia, unspecified; I70.0 Atherosclerosis of aorta; E27.8 Other specified disorders of adrenal gland; I48.0 Paroxysmal atrial fibrillation; T68.XXXA Hypothermia, initial encounter; S09.8XXA Other specified injuries of head, initial encounter; R79.89 Other specified abnormal findings of blood chemistry; R19.7 Diarrhea, unspecified; G96.8 Other specified disorders of central nervous system; Z80.0 Family history of malignant neoplasm of digestive organs; Z82.49 Family history of ischemic heart disease and other diseases of the circulatory system; Z83.3 Family history of diabetes mellitus; Z86.73 Personal history of transient ischemic attack (TIA), and cerebral infarction without residual deficits; Z79.899 Other long term (current) drug therapy; Z95.1 Presence of aortocoronary bypass graft; Z99.81 Dependence on supplemental oxygen; Z88.6 Allergy status to analgesic agent; Z88.8 Allergy status to other drugs, medicaments and biological substances; Z79.82 Long term (current) use of aspirin; Y93.89 Activity, other specified; Y92.091 Bathroom in other non-institutional residence as the place of occurrence of the external cause; Y99.8 Other external cause status; Z80.8 Family history of malignant neoplasm of other organs or systems; Z71.3 Dietary counseling and surveillance
CPT/HCPCS: 36415; 36600; 51702; 70450; 71045; 72125; 73030; 74018; 74176; 76775; 80048; 80053; 80061; 81001; 82040; 82270; 82550; 82805; 82947; 82962; 83036; 83605; 83735; 84100; 84132; 84443; 84478; 84484; 85007; 85025; 85027; 85610; 86850; 86900; 86901; 86920; 87040; 87070; 87077; 87081; 87086; 87088; 87186; 87205; 87493; 92526; 92610; 93005; 93306; 93459; 93886; 93970; 94002; 94003; 94640; 94660; 94761; 95819; 96374; 96375; 96376; 96379; 97163; 99152; C9113; J0171; J0330; J0461; J0610; J1450; J1815; J1885; J2248; J2250; J2405; J2543; J3480; J3490; J7060; J7131; P9047